=== PATIENT | male | born 1985 | race African-American/Black ===

== ENCOUNTER 2022-09-19 16:45 | Emergency (ER) | payer SELFPAY ==
[~2022-09-19] VITALS: Ht 190.5 cm; Wt 81.0 kg
[2022-09-19 16:50] VITALS: O2SAT 98
[2022-09-19] MEDS ORDERED: KETOROLAC 60MG/2ML VIAL IM STA (17:01)
[2022-09-19] MEDS ORDERED: IBUP-2029 PO (17:12)
[2022-09-19] MEDS ORDERED: SULF1TAB48 PO (17:12)
[2022-09-19] MEDS ORDERED: AMOX1TAB16 PO (17:12)
[2022-09-19 17:20] VITALS: BP 109/67; PULSE 80; RESP 20; TEMP 97.6
== END 2022-09-19 17:26 | disposition home or self-care (01) ==
LOC: ER 16:45
DX: L02.416 Cutaneous abscess of left lower limb (principal)
CPT/HCPCS: 99283; 96372; J1885

== ENCOUNTER 2023-02-16 13:31 | Emergency (ER) | payer MEDICAID ==
[~2023-02-16] VITALS: Ht 190.5 cm; Wt 82.0 kg
[~2023-02-16 13:31] MED LIST: AMOX1TAB16 PO; IBUP-2029 PO; SULF1TAB48 PO
[2023-02-16 13:50] VITALS: O2SAT 100
[2023-02-16] MEDS ORDERED: LIDOCAINE HCL/PF 1% 10 MG/ML 5ML VIAL INFIL ONE (15:15)
[2023-02-16] MEDS ORDERED: BACITRACIN ZINC OINT UDPKT TOP ONE (15:15)
[2023-02-16] MEDS ORDERED: IBUP-2029 MT (16:12)
[2023-02-16 16:43] VITALS: BP 135/86; PULSE 75; RESP 19; TEMP 98.9
== END 2023-02-16 16:46 | disposition home or self-care (01) ==
LOC: ER 13:31
DX: S51.811A Laceration without foreign body of right forearm, initial encounter (principal); Z98.890 Other specified postprocedural states; X58.XXXA Exposure to other specified factors, initial encounter; Y93.89 Activity, other specified; Y92.89 Other specified places as the place of occurrence of the external cause; Y99.8 Other external cause status
CPT/HCPCS: 12002; 99282; J3490; Z7610 ×4

== ENCOUNTER 2023-02-25 15:12 | Emergency (ER) | payer MEDICAID ==
[~2023-02-25] VITALS: Ht 182.9 cm; Wt 91.0 kg
[~2023-02-25 15:12] MED LIST changes: +IBUP-2029 MT
[2023-02-25 15:19] VITALS: O2SAT 97
[2023-02-25] MEDS ORDERED: BO1 TP (15:38)
[2023-02-25] MEDS ORDERED: BACITRACIN ZINC OINT UDPKT TOP ONE (15:45)
[2023-02-25 16:15] VITALS: BP 137/88; PULSE 86; RESP 18; TEMP 98.3
== END 2023-02-25 16:16 | disposition home or self-care (01) ==
LOC: ER 15:12
DX: S61.419D Laceration without foreign body of unspecified hand, subsequent encounter (principal); Z98.890 Other specified postprocedural states; X58.XXXD Exposure to other specified factors, subsequent encounter
CPT/HCPCS: 99282; Z7610